=== PATIENT | female | born 1965 | race Caucasian/White ===

== ENCOUNTER 2018-04-02 17:55 | Emergency (ER) | payer OTHER ==
[~2018-04-02] VITALS: Ht 162.6 cm; Wt 102.1 kg
[2018-04-02 18:02] VITALS: BP_SYST 145
[2018-04-02 21:35] VITALS: BP_SYST 140
== END 2018-04-02 21:35 | disposition home or self-care (01) ==
LOC: SED 17:55
DX: S50.12XA Contusion of left forearm, initial encounter (principal); Z88.6 Allergy status to analgesic agent; X58.XXXA Exposure to other specified factors, initial encounter; Y93.01 Activity, walking, marching and hiking; Y92.69 Other specified industrial and construction area as the place of occurrence of the external cause; Y99.8 Other external cause status
CPT/HCPCS: 73090; 99283